=== PATIENT | male | born 1945 | race Caucasian/White ===

== ENCOUNTER 2017-08-17 12:21 | Inpatient (IN) ==
--- NOTE | 2017-08-17 12:52 | Emergency Department Note ---
Disposition Clinical Impression: Dilated bile duct Abdominal pain Qualifiers: Abdominal location: epigastric Qualified Code(s): R10.13 - Epigastric pain Disposition: Admitted As Inpatient Condition: Good General Adult HPI - General Chief complaint: ED Abdominal Pain Stated complaint: Common bile duct stone Time Seen by Provider: 08/17/17 12:49 Source: patient, EMS Limitations: no limitations - History of Present Illness Pain Scale: 0 - Related Data Home Medications Medication Instructions Recorded Confirmed Citalopram Hydrobromide [Celexa] 20 mg PO DAILY 08/17/17 08/17/17 Metformin HCl [Glucophage] 500 mg PO BID 08/17/17 08/17/17 Prazosin HCl [Minipress] 5 mg PO HS 08/17/17 08/17/17 Topiramate [Topamax] 100 mg PO HS 08/17/17 08/17/17 glipiZIDE [Glucotrol] 2.5 mg PO DAILY 08/17/17 08/17/17 Allergies Allergy/AdvReac Type Severity Reaction Status Date / Time gemfibrozil AdvReac Muscle Pain Verified 08/17/17 14:48 niacin AdvReac Dizziness Verified 08/17/17 14:48 Past Medical History - Past Medical History Medical history: Reports: diabetes, hyperlipidemia - Social History Smoking Status: Never smoker Smokeless Tobacco Status: No Alcohol use: Reports: none Drug use: Reports: none Physical Exam - General Limitations: no limitations General appearance: alert, in no apparent distress Course Vital Signs Temperature 97.1 F L 08/17/17 12:24 Pulse Rate 68 08/17/17 12:24 Respiratory Rate 18 08/17/17 12:24 Blood Pressure 164/94 08/17/17 12:24 O2 Sat by Pulse Oximetry 97 08/17/17 12:24 Temperature 97.4 F L 08/17/17 14:34 Pulse Rate 72 08/17/17 14:34 Respiratory Rate 16 08/17/17 14:34 Blood Pressure 168/82 08/17/17 14:34 O2 Sat by Pulse Oximetry 99 08/17/17 14:34 Oxygen Delivery Oxygen Delivery Room Air Medical Decision Making - Lab Data Result diagrams: 08/17/17 13:32 08/17/17 13:32 Lab Results 08/17/17 08/17/17 Range/Units 13:32 13:32 WBC 8.3 (4.3-11.1) K/mcL RBC 4.48 (4.19-5.50) M/mcL Hgb 12.6 L (12.9-16.9) g/dL Hct 39.2 (37.5-50.1) % MCV 87.5 (83.0-100.0) fL MCH 28.1 (28.0-33.3) pg MCHC 32.1 (31.6-35.5) g/dL RDW 14.4 (11.5-14.5) % Plt Count 283 (140-400) K/mcL MPV 9.5 (9.4-12.4) fL Immature Gran % 1.0 (0-4) % Seg Neutrophils % 72.4 % Lymphocytes % 17.8 % Monocytes % 7.2 % Eosinophils % 1.0 % Basophils % 0.6 % Neutrophils # 6.0 (1.6-8.9) K/mcL Lymphocytes # 1.5 (0.6-4.6) K/mcL Monocytes # 0.6 (0.0-1.3) K/mcL Eosinophils # 0.1 (0.0-0.6) K/mcL Basophils # 0.1 (0.0-0.2) K/mcL Sodium 141 (136-145) mEq/L Potassium 3.9 (3.5-5.1) mEq/L Chloride 107 (98-107) mEq/L Carbon Dioxide 30 H (23-29) mEq/L BUN 14 (8-23) mg/dL Creatinine 0.77 (0.70-1.30) mg/dL Est GFR ( Amer) > 60 (> 60) Est GFR (Non-Af Amer) > 60 (> 60) BUN/Creatinine Ratio 18 (6-26) Glucose 169 H (70-105) mg/dL Calculated Osmolality 296 (280-300) Calcium 9.2 (8.6-10.3) mg/dL Total Bilirubin 1.2 H (0.3-1.0) mg/dL AST 42 H (13-39) Units/L ALT 139 H (7-52) Units/L Alkaline Phosphatase 232 H (34-104) Units/L Serum Total Protein 6.6 (6.4-8.9) g/dL Albumin 4.1 (3.5-5.7) g/dL Globulin 2.5 (2.4-3.5) g/dL Albumin/Globulin Ratio 1.6 (1.1-2.2) Attestation Statement - Attestation Attestation: I examined this patient and my medical decision-making was reviewed with the BEAM BUILDER HELPER/PA/Advanced Practice Nurse/Resident Physician. I agree with the documented findings, disposition and treatment plan as described except to the extent set forth below. I did speak with the patient and examined him. I did review the records from the [facility] as well as speaking with the physician assistant branch operations manager who sent the patient over here. Currently the patient is pain-free and on exam there is no pain with palpation. Patient does have biliary duct dilation and this will discuss further with GI for ongoing management and care. [address] Mccain and we reviewed the records from the [facility] the [facility] report and labs. Rec admission and he will do MRCP 1257
--- NOTE | 2017-08-17 13:10 | Emergency Department Note ---
Disposition Clinical Impression: Dilated bile duct Abdominal pain Qualifiers: Abdominal location: epigastric Qualified Code(s): R10.13 - Epigastric pain Disposition: Admitted As Inpatient Condition: Good Time of Disposition: 13:22 General Adult HPI - General Chief complaint: ED Abdominal Pain Stated complaint: Common bile duct stone Time Seen by Provider: 08/17/17 12:49 Source: patient, EMS Limitations: no limitations Nursing Notes Reviewed: Yes Vital Signs Reviewed: Yes - History of Present Illness HPI Narrative: Three-month history of intermittent abdominal pain. Associated nausea. Not present at this time. Well-appearing. Sent here for possible MRCP. Pain Scale: 0 - Related Data Home Medications Medication Instructions Recorded Confirmed Citalopram Hydrobromide [Celexa] 20 mg PO DAILY 08/17/17 08/17/17 Metformin HCl [Glucophage] 500 mg PO BID 08/17/17 08/17/17 Prazosin HCl [Minipress] 5 mg PO HS 08/17/17 08/17/17 Topiramate [Topamax] 100 mg PO HS 08/17/17 08/17/17 glipiZIDE [Glucotrol] 2.5 mg PO DAILY 08/17/17 08/17/17 Allergies Allergy/AdvReac Type Severity Reaction Status Date / Time gemfibrozil AdvReac Muscle Pain Verified 08/17/17 14:48 niacin AdvReac Dizziness Verified 08/17/17 14:48 All systems ED: reviewed and negative except as stated. Constitutional: Denies: fever, chills Cardiovascular: Denies: chest pain, syncope Respiratory: Denies: cough, dyspnea Gastrointestinal: Reports: abdominal pain (Intermittent not this time.), nausea (occasionally. ). Denies: vomiting, diarrhea Past Medical History - Past Medical History Attestation: Yes The following information was validated with the patient. Medical history: Reports: diabetes, hyperlipidemia - Social History Smoking Status: Never smoker Smokeless Tobacco Status: No Alcohol use: Reports: none Drug use: Reports: none Physical Exam - General Limitations: no limitations General appearance: alert, in no apparent distress - Head Head exam: atraumatic, normocephalic, normal inspection - Eye Eye exam: Present: normal appearance, PERRL, EOMI - ENT ENT exam: normal exam, normal oropharynx, mucous membranes moist - Neck Neck exam: Present: normal inspection, full ROM, trachea midline - Chest Chest inspection: Present: normal inspection, symmetric chest wall rise - Respiratory Respiratory exam: Present: normal lung sounds bilaterally - Cardiovascular Cardiovascular exam: Present: regular rate, normal rhythm, normal heart sounds - Abdominal Exam Abdominal exam: Present: soft, Non-Tender. Absent: tenderness, distention, guarding, rebound, rigidity, organomegaly - Extremities Exam Extremities exam: Present: normal inspection, full ROM, normal capillary refill. Absent: tenderness, pedal edema - Back Exam Back exam: Present: normal inspection, full ROM. Absent: tenderness - Neurological Exam Neurological exam: Present: alert, oriented X3 - Psychiatric Psychiatric exam: Present: normal affect, normal mood - Skin Skin exam: Present: warm, dry, intact, normal color. Absent: rash Course Course Narrative: Male patient being sent from the [facility] for abdominal pain. Was being worked up for this. Has had this happen 3 times since June. He was having a right upper quadrant ultrasound and repeat labs done today when he was sent over for a dilated biliary duct and elevated liver enzymes. He denies any pain at this time. He is mentating appropriately vitals are stable. Lung sounds are clear heart tones are normal belly soft nontender. We will admit patient to the hospital for GI services and a possible MRCP. Lab work and CT is on patient's chart from the [facility]. - Consultations Consultation #1: Dr Mccain was made aware of the Pt y my attending. He advised to admit to the hospital. I spoke with Dr Roman. He accepted the Pt in stable condition. Time: 13:09 Vital Signs Temperature 97.1 F L 08/17/17 12:24 Pulse Rate 68 08/17/17 12:24 Respiratory Rate 18 08/17/17 12:24 Blood Pressure 164/94 08/17/17 12:24 O2 Sat by Pulse Oximetry 97 08/17/17 12:24 Temperature 97.9 F 08/17/17 19:08 Pulse Rate 56 08/17/17 19:08 Respiratory Rate 15 08/17/17 19:08 Blood Pressure 160/81 08/17/17 19:08 O2 Sat by Pulse Oximetry 98 08/17/17 19:08 Oxygen Delivery Oxygen Delivery Room Air Medical Decision Making - Medical Records Medical records reviewed: Yes I reviewed the patient's medical records. - Lab Data Lab results reviewed: Yes I reviewed the patient's lab results. Result diagrams: 08/17/17 13:32 08/17/17 13:32 Lab Results 08/17/17 08/17/17 Range/Units 13:32 13:32 WBC 8.3 (4.3-11.1) K/mcL RBC 4.48 (4.19-5.50) M/mcL Hgb 12.6 L (12.9-16.9) g/dL Hct 39.2 (37.5-50.1) % MCV 87.5 (83.0-100.0) fL MCH 28.1 (28.0-33.3) pg MCHC 32.1 (31.6-35.5) g/dL RDW 14.4 (11.5-14.5) % Plt Count 283 (140-400) K/mcL MPV 9.5 (9.4-12.4) fL Immature Gran % 1.0 (0-4) % Seg Neutrophils % 72.4 % Lymphocytes % 17.8 % Monocytes % 7.2 % Eosinophils % 1.0 % Basophils % 0.6 % Neutrophils # 6.0 (1.6-8.9) K/mcL Lymphocytes # 1.5 (0.6-4.6) K/mcL Monocytes # 0.6 (0.0-1.3) K/mcL Eosinophils # 0.1 (0.0-0.6) K/mcL Basophils # 0.1 (0.0-0.2) K/mcL Sodium 141 (136-145) mEq/L Potassium 3.9 (3.5-5.1) mEq/L Chloride 107 (98-107) mEq/L Carbon Dioxide 30 H (23-29) mEq/L BUN 14 (8-23) mg/dL Creatinine 0.77 (0.70-1.30) mg/dL Est GFR ( Amer) > 60 (> 60) Est GFR (Non-Af Amer) > 60 (> 60) BUN/Creatinine Ratio 18 (6-26) Glucose 169 H (70-105) mg/dL Calculated Osmolality 296 (280-300) Calcium 9.2 (8.6-10.3) mg/dL Total Bilirubin 1.2 H (0.3-1.0) mg/dL AST 42 H (13-39) Units/L ALT 139 H (7-52) Units/L Alkaline Phosphatase 232 H (34-104) Units/L Serum Total Protein 6.6 (6.4-8.9) g/dL Albumin 4.1 (3.5-5.7) g/dL Globulin 2.5 (2.4-3.5) g/dL Albumin/Globulin Ratio 1.6 (1.1-2.2)
[2017-08-17 13:43] LABS: Basophils # 0.1 K/mcL (0.0-0.2); Basophils % 0.6 %; Eosinophils # 0.1 K/mcL (0.0-0.6); Hematocrit 39.2 % (37.5-50.1); Hemoglobin 12.6 g/dL (12.9-16.9); Lymphocytes # 1.5 K/mcL (0.6-4.6); Lymphocytes % 17.8 %; Mean Corpuscular HGB Conc 32.1 g/dL (31.6-35.5); Mean Corpuscular Hemoglobin 28.1 pg (28.0-33.3); Mean Corpuscular Volume 87.5 fL (83.0-100.0); Mean Platelet Volume 9.5 fL (9.4-12.4); Monocytes # 0.6 K/mcL (0.0-1.3); Monocytes % 7.2 %; Platelet Count 283 K/mcL (140-400); Red Blood Count 4.48 M/mcL (4.19-5.50); Red Cell Distribution Width 14.4 % (11.5-14.5); Segmented Neutrophils % 72.4 %
[2017-08-17 14:00] LABS: Alanine Aminotransferase 139 Units/L (7-52); Albumin 4.1 g/dL (3.5-5.7); Albumin/Globulin Ratio 1.6 (1.1-2.2); Alkaline Phosphatase 232 Units/L (34-104); Aspartate Amino Transferase 42 Units/L (13-39); BUN/Creatinine Ratio 18 (6-26); Bilirubin,Total 1.2 mg/dL (0.3-1.0); Blood Urea Nitrogen 14 mg/dL (8-23); Calcium 9.2 mg/dL (8.6-10.3); Carbon Dioxide 30 mEq/L (23-29); Chloride 107 mEq/L (98-107); Globulin 2.5 g/dL (2.4-3.5); Glucose 169 mg/dL (70-105); Osmolality,Calculated 296 (280-300); Potassium 3.9 mEq/L (3.5-5.1); Sodium 141 mEq/L (136-145); Total Protein 6.6 g/dL (6.4-8.9); eGFR For African Americans > 60 (> 60); eGFR For Non-African Americans > 60 (> 60)
[2017-08-17] MEDS ORDERED: Acetaminophen 325 MG TABLET PO PRN (14:07)
[2017-08-17] MEDS ORDERED: Naloxone 0.4 MG/ML INJ IVP PRN (14:07)
[2017-08-17] MEDS ORDERED: *HR* HYDROcodone/Acet 5/325 mg TABLET PO PRN (14:07)
[2017-08-17] MEDS ORDERED: Ondansetron 4 MG/2 ML VIAL IVP PRN (14:14)
[2017-08-17] MEDS ORDERED: D5% in Water 1,000 ML IVC PRN (14:17)
[2017-08-17] MEDS ORDERED: Dextrose Gel 15 GM/37.5 ML TUBE PO PRN ×2 (14:17)
[2017-08-17] MEDS ORDERED: *HR* Dextrose 50 % in Water (Syg) 50 ML SYRINGE IVP PRN (14:17)
[2017-08-17] MEDS: Pantoprazole 40 MG VIAL IVP SCH (14:38)
--- NOTE | 2017-08-17 15:15 | Internal Med History&Physical ---
<Oliver Renteria - Last Filed: 08/17/17 15:38> Date of Encounter: 08/17/17 Time of Encounter: 13:00 Internal Medicine - H&P: HPI Chief complaint: Abdominal pain/N/V Admitted From: Hospital to Hospital Transfer Plans for Post Hospital Care: Home History of present illness: Mr. Espinoza is a 71 year old male w/PMH of diabetes, HTN, and HLD presents from the ED w/CC of abdominal pain, nausea, and vomiting since July 24. Patient reports episode of nausea with vomiting on July 24, August 01, and August 11. Was at [facility] today for appointment and sent to [facility] ED for further workup based on consistent epigastric pain and abdominal edema. Imaging at [facility] shows biliary duct dilation with suspicion for possible common bile duct stone. Pt. states no alleviating or aggravating factors. Reports occasional alcohol use. Patient denies recent illness, fever, chills, changes in vision, headache, cough, congestion, chest pain, shortness of breath, unusual bleeding, diarrhea, constipation, dizziness, lightheadedness, numbness, tingling, pre-syncope, or syncope. Past Med Surg Social Fam HX - Past Medical History Source: patient, old records reviewed Medical history: diabetes, hyperlipidemia - Social History Smoking Status: Never smoker Smokeless Tobacco Status: No Alcohol use: occasionally Drug use: none Current living situation: Home Activity Level: Independent ambulation, Very active Recent Out of Country Travel Within the Last 8 Weeks: No Exposure or Possible Exposure to Illness During Travel: No - Family History Father Race: Family Member Ethnicity: Non- Living Status: Age at : 61 Cause of : [place] Hx Family Cardiac Disorders: Yes (CAD, [place]) Mother Race: Family Member Ethnicity: Non- Living Status: Age at : 95 Cause of : Old age Sister Race: Family Member Ethnicity: Non- Living Status: Still Living Hx Family Medical Disorders: No Internal Medicine - H&P: Meds Citalopram Hydrobromide [Celexa] 20 mg PO DAILY 08/17/17 [History] Metformin HCl [Glucophage] 500 mg PO BID 08/17/17 [History] Prazosin HCl [Minipress] 5 mg PO HS 08/17/17 [History] Topiramate [Topamax] 100 mg PO HS 08/17/17 [History] glipiZIDE [Glucotrol] 2.5 mg PO DAILY 08/17/17 [History] 3 Allergy/AdvReac Type Severity Reaction Status Date / Time gemfibrozil AdvReac Muscle Pain Verified 08/17/17 14:48 niacin AdvReac Dizziness Verified 08/17/17 14:48 All Systems PM: A 10-system review of systems was performed and is negative for pertinent findings except as documented above in the HPI. - Constitutional Constitutional: no chills, no fever(s), no night sweats - EENT Eyes: no change in vision, no discharge, no pain, no photophobia Ears: no ear discharge, no ear pain, no tinnitus Nose, mouth and throat: no dysphagia, no nasal discharge, no neck pain, no sore throat - Breasts Breasts: as per HPI - Cardiovascular Cardiovascular ROS IM: no chest pain, no diaphoresis, no dyspnea, no lightheadedness, no palpitations, no syncope - Respiratory Respiratory: no cough, no dyspnea, no wheezing, no excessive phlegm production - Gastrointestinal Gastrointestinal: as per HPI, abdominal pain, nausea, vomiting, no diarrhea, no hematemesis, no hematochezia, no melena - Genitourinary Genitourinary ROS male: as per HPI - Musculoskeletal Musculoskeletal ROS IM: no numbness, no tingling - Integumentary Integumentary IM: no rash, no unusual bruising - Neurological Neurological ROS: no confusion, no convulsions, no focal weakness, no numbness, no tingling, no tremor(s) - Psychiatric Psychiatric: as per HPI - Endocrine Endocrine IM: as per HPI - Hematologic/Lymphatic Hematologic/Lymphatic: no easy bruising - Allergic/Immunologic Allergic/Immunologic: as per HPI - Constitutional Vitals: Temp Pulse Resp BP Pulse Ox 97.4 F L 72 16 168/82 99 08/17/17 14:34 08/17/17 14:34 08/17/17 14:34 08/17/17 14:34 08/17/17 14:34 General appearance: Present: cooperative, A&O X 3, pleasant, no acute distress, answers questions appropriately - Head Head exam: Present: atraumatic, normocephalic - Eye Eye exam: Present: PERRL, conjuntiva pink, sclera anicteric Pupils: Present: PERRL - ENT ENT exam: Present: normal exam - Neck Neck exam general surgery: Present: supple, trachea midline. Absent: lymphadenopathy - Respiratory Respiratory exam: Present: CTAB. Absent: accessory muscle use, rales, rhonchi, wheezes - Cardiovascular Cardiovascular exam: Present: RRR, +S1, +S2. Absent: diastolic murmur, gallop, rubs, systolic murmur - GI/Abdominal GI/Abdominal exam: Present: normal bowel sounds, soft, no peritoneal signs. Absent: distended, tenderness - Rectal Rectal exam: Present: deferred - Additional comments: exam deferred. - Extremities Exam Extremities exam: Present: warm, radial pulses palpable and symmetrical. Absent : calf tenderness, cyanotic, pedal edema - Back Exam Back exam: Present: normal inspection - Neurological Exam Neurological exam: Present: CN II-XII intact, oriented X3, no focal deficits. Absent: pronater drift, facial droop, speech deficit - Psychiatric Psychiatric exam: Present: normal affect, normal mood - Skin Skin exam: Present: dry, intact Internal Med - H&P Results - Labs CBC & Chem 7: 08/17/17 13:32 08/17/17 13:32 Labs: Short CBC 08/17/17 Range/Units 13:32 WBC 8.3 (4.3-11.1) K/mcL Hgb 12.6 L (12.9-16.9) g/dL Hct 39.2 (37.5-50.1) % Plt Count 283 (140-400) K/mcL Neutrophils # 6.0 (1.6-8.9) K/mcL BMP 08/17/17 13:32 Sodium 141 Potassium 3.9 Chloride 107 Carbon Dioxide 30 H BUN 14 Creatinine 0.77 Glucose 169 H Calcium 9.2 Liver Function 08/17/17 Range/Units 13:32 Total Bilirubin 1.2 H (0.3-1.0) mg/dL AST 42 H (13-39) Units/L ALT 139 H (7-52) Units/L Alkaline Phosphatase 232 H (34-104) Units/L Albumin 4.1 (3.5-5.7) g/dL - Assessment and plan (1) Dilated bile duct Current Visit: Yes Status: Acute Assessment and plan: Evidence of acutely dilated common bile duct on imaging at [facility] accompanied by intermittent N/V and abdominal pain since July 24. Total bilirubin 1.2, AST 42, and ALT 139. Pt. denies current N/V on exam w/no abdominal pain on palpation. GI consult ordered in ED. Discussed pt. w/Dr. Mccain w/recommendation for stat MRCP to assess for stone. Dr. Mccain will assess imaging and plan for procedure in a.m. if appropriate. I appreciate the consult and recommendations as always. NPO at midnight. Clear diet with advance as tolerated currently. IVP Zofran 4 mg every 6 hours when necessary for nausea and vomiting. IVP Protonix 40 mg daily. Bilateral SCDs for DVT prophylaxis. Discussed pt. w/Dr. Roman who agrees w/plan of care. Pt. is low risk for further morbidity based on intermittent sx, hx, and risk factors. [facility]. (2) Abdominal pain Current Visit: Yes Status: Acute Assessment and plan: Acute intermittent abdominal pain since July 24 d/t accompanied by N/V. Pt. currently denies N/V on exam. IVP Zofran 4 mg Q6HR PRN for N/V. IVP Protonix 40 mg daily. Clear liquid diet w/advance as tolerated. Monitor I&O and daily weight. Stair-step pain medications for pain control. Qualifiers: Abdominal location: epigastric Qualified Code(s): R10.13 - Epigastric pain (3) HTN (hypertension) Current Visit: Yes Status: Chronic Assessment and plan: Hx of chronic HTN. Monitor pt. and VS. Continue pts. Prazosin. Hydralazine 10 mg IVP Q6HR PRN added w/parameters if needed. Qualifiers: Hypertension type: essential hypertension Qualified Code(s): I10 - Essential (primary) hypertension (4) HLD (hyperlipidemia) Current Visit: Yes Status: Chronic Assessment and plan: Hx of chronic HLD. Pt. states was on statin but was taken off by PCP. Reports hx of hypertriglyceridemia. Lipid panel in a.m. labs. Consider adding statin based in lipid panel results. Qualifiers: Hyperlipidemia type: pure hypercholesterolemia Qualified Code(s): E78.00 - Pure hypercholesterolemia, unspecified; E78.0 - Pure hypercholesterolemia (5) Diabetes Current Visit: Yes Status: Chronic Assessment and plan: Hx of chronic diabetes controlled with oral antihyperglycemic medications. Will hold patient's oral medications and administer low-dose correction insulin sliding scale and hypoglycemic protocol. BG checks before meals at bedtime. A1c in a.m. labs. Qualifiers: Diabetes mellitus type: type 2 Diabetes mellitus crm specialist insulin use: without [facility] use Diabetes mellitus complication status: with unspecified complications Qualified Code(s): E11.8 - Type 2 diabetes mellitus with unspecified complications (6) DVT prophylaxis Current Visit: Yes Status: Acute Assessment and plan: Bilateral SCDs on LEs for DVT prophylaxis. (7) Nausea and vomiting Current Visit: Yes Status: Acute Assessment and plan: Acute N/V intermittently since July 24 d/t abdominal pain and discomfort. Pt. currently denies N/V on exam. IVP Zofran 4 mg Q6HR PRN for N/V. IVP Protonix 40 mg daily. Qualifiers: Vomiting type: cyclical vomiting Vomiting Intractability: non-intractable Qualified Code(s): G43.A0 - Cyclical vomiting, not intractable - Time Spent With Patient Total time spent is greater than 50% in coordination of care (as documented) at patient's floor/unit and/or counseling patient: Greater than 35 minutes <Ganesh Roman - Last Filed: 08/17/17 18:40> Date of Encounter: 08/17/17 Internal Medicine - H&P: HPI History of present illness: Mr. Espinoza is a 71 year old male All Systems PM: A 10-system review of systems was performed and is negative for pertinent findings except as documented above in the HPI. - Constitutional Vitals: Temp Pulse Resp BP Pulse Ox 97.4 F L 72 16 168/82 99 08/17/17 14:34 08/17/17 14:34 08/17/17 14:34 08/17/17 14:34 08/17/17 14:34 Internal Med - H&P Results - Labs CBC & Chem 7: 08/17/17 13:32 08/17/17 13:32 - Attending Attestation Discussed with ESAU and agree with assessment and plan as above Patient is a 71-year-old male who presents with nausea/vomiting/abdominal pain found to have evidence of dilated common bile duct on imaging at the [facility]. On examination patient with minimal abdominal discomfort without distention. GI has been consulted with recommendations for MRCP/ERCP - Assessment and plan (1) Abdominal pain Current Visit: Yes Status: Acute Qualifiers: Abdominal location: epigastric Qualified Code(s): R10.13 - Epigastric pain (2) Dilated bile duct Current Visit: Yes Status: Acute (3) HTN (hypertension) Current Visit: Yes Status: Chronic Qualifiers: Hypertension type: essential hypertension Qualified Code(s): I10 - Essential (primary) hypertension (4) HLD (hyperlipidemia) Current Visit: Yes Status: Chronic Qualifiers: Hyperlipidemia type: pure hypercholesterolemia Qualified Code(s): E78.00 - Pure hypercholesterolemia, unspecified; E78.0 - Pure hypercholesterolemia (5) Diabetes Current Visit: Yes Status: Chronic Qualifiers: Diabetes mellitus type: type 2 Diabetes mellitus [facility] insulin use: without [facility] use Diabetes mellitus complication status: with unspecified complications Qualified Code(s): E11.8 - Type 2 diabetes mellitus with unspecified complications (6) DVT prophylaxis Current Visit: Yes Status: Acute (7) Nausea and vomiting Current Visit: Yes Status: Acute Qualifiers: Vomiting type: cyclical vomiting Vomiting Intractability: non-intractable Qualified Code(s): G43.A0 - Cyclical vomiting, not intractable - Time Spent With Patient Total time spent is greater than 50% in coordination of care (as documented) at patient's floor/unit and/or counseling patient:
[2017-08-17] MEDS ORDERED: *HR* Heparin 5,000 UNIT/ML VIAL SQ SCH (16:00)
[2017-08-17] MEDS: Insulin LISPRO 300 UNITS/3 ML VIAL SQ SCH ×2 (16:45→20:24)
[2017-08-17 19:13] LABS: INR 1.1; Prothrombin Time 11.7 Seconds (9.4-12.1)
[2017-08-17] MEDS: Topiramate 100 MG TABLET PO SCH (20:15)
[2017-08-18 05:15] LABS: Basophils % 0.6 %; Eosinophils # 0.1 K/mcL (0.0-0.6); Eosinophils % 1.7 %; Hematocrit 37.8 % (37.5-50.1); Hemoglobin 12.6 g/dL (12.9-16.9); Immature Granulocytes % 0.6 % (0-4); Lymphocytes # 1.6 K/mcL (0.6-4.6); Lymphocytes % 23.4 %; Mean Corpuscular HGB Conc 33.3 g/dL (31.6-35.5); Mean Corpuscular Volume 87.1 fL (83.0-100.0); Mean Platelet Volume 9.8 fL (9.4-12.4); Monocytes # 0.5 K/mcL (0.0-1.3); Monocytes % 7.5 %; Neutrophils # 4.4 K/mcL (1.6-8.9); Platelet Count 261 K/mcL (140-400); Red Blood Count 4.34 M/mcL (4.19-5.50); Red Cell Distribution Width 14.3 % (11.5-14.5); Segmented Neutrophils % 66.2 %
[2017-08-18 05:26] LABS: Alanine Aminotransferase 115 Units/L (7-52); Albumin 3.8 g/dL (3.5-5.7); Albumin/Globulin Ratio 1.5 (1.1-2.2); Alkaline Phosphatase 215 Units/L (34-104); Aspartate Amino Transferase 28 Units/L (13-39); BUN/Creatinine Ratio 16 (6-26); Bilirubin,Total 1.6 mg/dL (0.3-1.0); Blood Urea Nitrogen 12 mg/dL (8-23); Calcium 9.5 mg/dL (8.6-10.3); Carbon Dioxide 22 mEq/L (23-29); Chloride 110 mEq/L (98-107); Cholesterol 150 mg/dL (< 200); Globulin 2.6 g/dL (2.4-3.5); Glucose 139 mg/dL (70-105); HDL Cholesterol 30 mg/dL (40-59); LDL Cholesterol,Calculated 80 mg/dL (0-99); Osmolality,Calculated 292 (280-300); Sodium 140 mEq/L (136-145); Total Protein 6.4 g/dL (6.4-8.9); Triglycerides 199 mg/dL (< 150); eGFR For African Americans > 60 (> 60); eGFR For Non-African Americans > 60 (> 60)
[2017-08-18] MEDS: Insulin LISPRO 300 UNITS/3 ML VIAL SQ SCH ×4 (07:30→21:20)
--- NOTE | 2017-08-18 08:49 | Anesthesia Evaluation PreOp ---
Date of Encounter: 08/18/17 Time of Encounter: 08:45 - Past History Planned Operation: ERCP Cardiac History: HTN Pulmonary History: Denies Any Significant HX BANKING MANAGER History: Denies Any Significant HX Other Medical History: Diabetes Type II (Accu check 124) Anesthesia History: No Prior Anesthetic Complications Alcohol Use: none Drug use: none Medications and Allergies Citalopram Hydrobromide [Celexa] 20 mg PO DAILY 08/17/17 [History] Metformin HCl [Glucophage] 500 mg PO BID 08/17/17 [History] Prazosin HCl [Minipress] 5 mg PO HS 08/17/17 [History] Topiramate [Topamax] 100 mg PO HS 08/17/17 [History] glipiZIDE [Glucotrol] 2.5 mg PO DAILY 08/17/17 [History] 3 Allergy/AdvReac Type Severity Reaction Status Date / Time gemfibrozil AdvReac Muscle Pain Verified 08/17/17 14:48 niacin AdvReac Dizziness Verified 08/17/17 14:48 - Meds/Allergy Pre-op Review Medications Reviewed: Yes Allergies Reviewed: Yes Beta Blockers on Current Med List: No Anesthesia Results - Labs 08/18/17 04:48 08/18/17 04:48 Laboratory Tests 08/18/17 08/18/17 04:48 04:48 Hgb 12.6 L Hct 37.8 Plt Count 261 Sodium 140 Potassium 4.0 BUN 12 Creatinine 0.76 Glucose 139 H Anesthesia Exam Vital Signs/O2 Sat/Glucose, Most Current Temp Pulse Resp BP Pulse Ox 08/18/17 06:54 98.0 F 68 15 127/73 96 Height: 6'1 Weight: 205 lbs NPO (# of Hours): [place] Pain Scale: 0 - HEENT Pupil (Motor): Pupils equal, EOMI Mallampati: II Teeth: Normal Oral Opening: Greater than 3 - BANKING MANAGER LOC: Oriented BANKING MANAGER Motor: Normal RUE, Normal LUE, Normal RLE, Normal LLE, Normal Face BANKING MANAGER Sensory: Normal: RUE, LUE, RLE, LLE, Face - Cardiac Rhythm: Regular Murmur: None JVD: No Carotid Bruit: No - Pulmonary Breath Sounds: bilateral Clear Respiratory Effort: Symmetrical Anesthesia Assess/Plan ASA Score: 2 Modified Tyrell Scale for Level of Consciousness: Cooperative, oriented, and tranquil Anesthetic Plan: General Monitoring Plan: Standard Monitors Recovery Plan: PACU (Discussed GA, agrees to proceed)
[2017-08-18] MEDS: Ringers Solution, Lactated 1,000 ML IVC SCH ×2 (09:00→22:10)
[2017-08-18] MEDS ORDERED: Indomethacin 50 MG SUPP.RECT RC ONE (09:24)
[2017-08-18] MEDS ORDERED: *HR* Propofol 200 MG/20 ML VIAL IVP ONE ×2 (09:49)
[2017-08-18] MEDS ORDERED: *HR* Succinylcholine 200 MG/10 ML VIAL IVP ONE (09:49)
[2017-08-18] MEDS ORDERED: *HR* FentaNYL (PF) 100 MCG/2 ML VIAL ONE (09:49)
[2017-08-18] MEDS ORDERED: Lidocaine -MPF 2% 2 ML VIAL ONE (09:49)
[2017-08-18] MEDS ORDERED: Ondansetron 4 MG/2 ML VIAL ONE (09:49)
[2017-08-18] MEDS ORDERED: *HR* Midazolam HCl 2 MG/2 ML VIAL ONE (09:49)
[2017-08-18] MEDS ORDERED: Dexamethasone 4 MG/ML VIAL ONE (09:49)
[2017-08-18] MEDS ORDERED: *HR* PHENYLEPHRINE 1,000 MCG/10 ML SYRINGE IVP ONE (09:50)
[2017-08-18] MEDS ORDERED: Dexamethasone 4 MG/ML VIAL IVP ONE (09:51)
[2017-08-18] MEDS ORDERED: *HR* Labetalol 20 MG/4 ML SYRINGE IVP PRN (09:51)
[2017-08-18] MEDS ORDERED: *HR* Promethazine 25 MG/ML VIAL IVP PRN (09:51)
[2017-08-18] MEDS ORDERED: EPHEDrine 50 MG/ML VIAL ONE (10:02)
--- NOTE | 2017-08-18 11:10 | Gastroenterology Consult Note ---
Date of Encounter: 08/18/17 Time of Encounter: 13:00 - Assessment and plan (1) Dilated bile duct Current Visit: Yes Status: Acute (2) Biliary stone Current Visit: Yes Status: Acute Assessment and plan: MRCP showing a 1.4 cm large stone kael with dilated CBD and also patient has mildly elevated LFTs. Currently is pain-free. Plan: Patient need ERCP with removal of the stone procedure including risks such as infection bleeding perforation pancreatitis were discussed with the patient and he voice understanding and in agreement for the procedure. after removal of the CBD stone he will also need his gallbladder removed. Qualifiers: Cholelithiasis location: bile duct Cholecystitis presence: without cholecystitis Qualified Code(s): K80.50 - Calculus of bile duct without cholangitis or cholecystitis without obstruction - Time Spent With Patient Total time spent is greater than 50% in coordination of care (as documented) at patient's floor/unit and/or counseling patient: GI History of Present Illness - Data of Consult Requesting Physician: Nikita Edmondson MD - Consult Narrative Reason for consult: Large CBD stone History of present illness: Mr. Espinoza is a 71 year old male who is having recurrent epigastric abdominal pain since end of June per patient the pain can last for couple of hours. Denies any fever or chills. Denies any her discretion of the eyes or urine. Went to the ER at the [place] and had imaging done that showed dilated CBD with a possible stone so was transferred here. Had an MRCP done that showed a 1.4 cm stone in the distal common bile duct patient has mildly elevated LFTs.. Past Med Surg Social Fam HX - Past Medical History Medical history: diabetes, hyperlipidemia - Social History Smoking Status: Never smoker Smokeless Tobacco Status: No Alcohol use: none Drug use: none - Family History Father Race: Family Member Ethnicity: Non- Living Status: Age at : 63 Cause of : [place] Hx Family Cardiac Disorders: Yes (CAD, [place]) Mother Race: Family Member Ethnicity: Non- Living Status: Age at : 95 Cause of : Old age Sister Race: Family Member Ethnicity: Non- Living Status: Still Living Hx Family Medical Disorders: No Review of Systems: GI: as per [place] GENERAL: denies fever, has some chills EYES: denies yellow discoloration ENT: denies pain with swallowing or difficulty swallowing CARDIO: denies chest pain, palpitations RESP: No Shortness of breath with exertion : denies change in color of urine NEURO: denies any weakness HEME: Denies any bruising MS: denies joint pain, joint swelling or back pain. DERM: denies rash or itching PSYCH: Denies history of anxiety or depression - Constitutional Vitals: Temp Pulse Resp BP Pulse Ox 97.3 F L 66 18 120/89 97 08/18/17 11:00 08/18/17 11:00 08/18/17 11:00 08/18/17 11:00 08/18/17 11:00 Exam: CONSTITUTIONAL:~alert, no acute distress.~HEAD:~normocephalic.~EYES:~no jaundice.~NECK:~no obvious swelling.~HEART:~regular rate.~LUNGS:~No audible wheezing.~ABDOMEN:~non distended, soft, non tander, no masses pulpable, no organomegaly.~RECTAL EXAM:~Deferred.~EXTREMITIES:~no clubbing, cyanosis or edema.~SKIN:~no stigmata of chronic liver disease.~NEUROLOGIC:~no obvious focal defect.~~~~ Results - Labs CBC & Chem 7: 08/18/17 04:48 08/18/17 04:48 Labs: Last Result Calcium 9.5 mg/dL (8.6-10.3) 08/18/17 04:48 Triglycerides 199 mg/dL (< 150) H 08/18/17 04:48 Entire Visit Hgb 12.6 g/dL (12.9-16.9) L 08/18/17 04:48 Hct 37.8 % (37.5-50.1) 08/18/17 04:48 PT 11.7 Seconds (9.4-12.1) 08/17/17 18:28 Total Bilirubin 1.6 mg/dL (0.3-1.0) H 08/18/17 04:48 AST 28 Units/L (13-39) 08/18/17 04:48 ALT 115 Units/L (7-52) H 08/18/17 04:48 - ABG ABG results: PT/INR, D-dimer PT 11.7 Seconds (9.4-12.1) 08/17/17 18:28 - Impressions Impressions Cath/Invasive Procedure 08/18/17 10:18 IMPRESSION: No evidence of a focal stenosis or filling defect within the opacified biliary tree. Please refer to the procedure report for further details. D/ / Jermaine Colon MD / Jermaine Colon MD Interpreting Provider: Jermaine Colon MD Consult Discharge Plan - Plan Referrals: [facility] [Outside]
--- NOTE | 2017-08-18 11:47 | Anesthesia Evaluation Post Op ---
Date of Encounter: 08/18/17 Time of Encounter: 11:00 - Vital Signs Vital Signs: Vital Signs/O2 Sat/Glucose, Most Current Temp Pulse Resp BP Pulse Ox 08/18/17 11:10 56 16 122/77 98 08/18/17 11:00 97.3 F L 66 18 120/89 97 08/18/17 10:50 70 18 116/67 98 08/18/17 10:40 75 20 120/66 96 08/18/17 10:30 97.1 F L 89 22 123/69 96 08/18/17 09:13 68 18 131/74 99 08/18/17 09:01 96 - Lungs Lungs: Clear Ascult./Percussion - Airway Airway: Non-obstructed - Cardiovascular Regular Rate - Mental Status Mental Status: Alert & Oriented, Answers Appropriately - Pain Pain Scale: 0 - Nausea Vomiting Nausea Vomiting: Not Present - Hydration Hydration: Ice chips - Discharge PostOp Status: Transfer Patient to floor
--- NOTE | 2017-08-18 11:58 | General Surgery Consult Note ---
Date of Encounter: 08/18/17 Time of Encounter: 11:45 Assessment and Plan (1) Cholelithiasis with choledocholithiasis Current Visit: Yes Status: Acute The patient has undergone successful ERCP with clearance of a 1.4 cm common bile duct stone. Now presents for convalescent laparoscopic cholecystectomy. I discussed risks and benefits with him and wishes to proceed tomorrow morning. History of Present Illness Consult date: 08/18/17 Reason for consult: abdominal pain History of present illness: The patient is a 71-year-old male who presented to the [place] urgent care with abdominal pain. Subsequent radiologic evaluation demonstrated an acutely dilated common bile duct and elevated liver function test. He was transferred to [place] for further care. Dr. Mccain performed ERCP. A 1.4 cm stone was recovered. Dr. Mccain has asked me to see the patient in consultation for convalescent laparoscopic cholecystectomy to prevent future episodes of choledocholithiasis. The patient states that he has intermittent epigastric abdominal discomfort that he thought was gastritis or an ulcer. He has not previously been diagnosed with cholelithiasis. He denies episodes of jaundice. He denies shakes chills or fever. He now presents for convalescent laparoscopic cholecystectomy after ERCP treatment of choledocholithiasis I discussed risks and benefits of surgery with the patient he wishes to proceed before he is discharged home. We will proceed tomorrow morning. Past Med Surg Social Fam HX - Past Medical History Medical history: diabetes, hyperlipidemia - Social History Smoking Status: Never smoker Smokeless Tobacco Status: No Alcohol use: none Drug use: none - Family History Father Race: Family Member Ethnicity: Non- Living Status: Age at : 61 Cause of : [place] Hx Family Cardiac Disorders: Yes (CAD, [place]) Mother Race: Family Member Ethnicity: Non- Living Status: Age at : 95 Cause of : Old age Sister Race: Family Member Ethnicity: Non- Living Status: Still Living Hx Family Medical Disorders: No Medications and Allergies Citalopram Hydrobromide [Celexa] 20 mg PO DAILY 08/17/17 [History] Metformin HCl [Glucophage] 500 mg PO BID 08/17/17 [History] Prazosin HCl [Minipress] 5 mg PO HS 08/17/17 [History] Topiramate [Topamax] 100 mg PO HS 08/17/17 [History] glipiZIDE [Glucotrol] 2.5 mg PO DAILY 08/17/17 [History] 3 Allergy/AdvReac Type Severity Reaction Status Date / Time gemfibrozil AdvReac Muscle Pain Verified 08/17/17 14:48 niacin AdvReac Dizziness Verified 08/17/17 14:48 Review of Systems All systems PM: The remainder of the systems were reviewed and are negative General Surgery Exam Initial Vital Signs Temp Pulse Resp BP Pulse Ox 97.1 F L 68 18 164/94 97 08/17/17 12:24 08/17/17 12:24 08/17/17 12:24 08/17/17 12:24 08/17/17 12:24 - General physical appearance well developed, well nourished, no distress - ENT normal pinna, normal nares, normal mucosa, no hearing loss, no congestion - Respiratory normal expansion, normal respiratory effort, clear to percussion, clear to auscultation - Cardiovascular Cardiovascular exam: Present: RRR, no murmurs/rubs/gallops - Abdomen Abdomen general surgery: Present: bowel sounds present, soft, non tender - Integumentary Integumentary general surgery: Present: warm and dry, no abnormal pigmentation, other (no jaundice) - Neurologic Present: CN 2-12 grossly intact, normal coordination, normal sensation - Psychiatric Psychiatric general surgery: Present: appropriate, oriented to person, oriented to place, oriented to time, speech is normal, memory intact Exam Initial Vital Signs Temp Pulse Resp BP Pulse Ox 97.1 F L 68 18 164/94 97 08/17/17 12:24 08/17/17 12:24 08/17/17 12:24 08/17/17 12:24 08/17/17 12:24 Results - Labs 08/18/17 04:48 08/18/17 04:48 Abnormal lab results Hgb 12.6 g/dL (12.9-16.9) L 08/18/17 04:48 Chloride 110 mEq/L (98-107) H 08/18/17 04:48 Carbon Dioxide 22 mEq/L (23-29) L 08/18/17 04:48 Glucose 139 mg/dL (70-105) H 08/18/17 04:48 POC Glucose 125 mg/dL (70-99) H 08/18/17 05:39 Total Bilirubin 1.6 mg/dL (0.3-1.0) H 08/18/17 04:48 ALT 115 Units/L (7-52) H 08/18/17 04:48 Alkaline Phosphatase 215 Units/L (34-104) H 08/18/17 04:48 Triglycerides 199 mg/dL (< 150) H 08/18/17 04:48 VLDL Cholesterol, Calc 40 mg/dL (< 31) H 08/18/17 04:48 HDL Cholesterol 30 mg/dL (40-59) L 08/18/17 04:48 Cholesterol/HDL Ratio 5.0 (0-4.9) H 08/18/17 04:48 Diabetes panel 08/18/17 Range/Units 04:48 Sodium 140 (136-145) mEq/L Potassium 4.0 (3.5-5.1) mEq/L Chloride 110 H (98-107) mEq/L Carbon Dioxide 22 L (23-29) mEq/L BUN 12 (8-23) mg/dL Creatinine 0.76 (0.70-1.30) mg/dL Glucose 139 H (70-105) mg/dL Calcium 9.5 (8.6-10.3) mg/dL AST 28 (13-39) Units/L ALT 115 H (7-52) Units/L Alkaline Phosphatase 215 H (34-104) Units/L Albumin 3.8 (3.5-5.7) g/dL Triglycerides 199 H (< 150) mg/dL HDL Cholesterol 30 L (40-59) mg/dL Calcium panel 08/18/17 Range/Units 04:48 Calcium 9.5 (8.6-10.3) mg/dL Albumin 3.8 (3.5-5.7) g/dL Pituitary panel 08/18/17 Range/Units 04:48 Sodium 140 (136-145) mEq/L Potassium 4.0 (3.5-5.1) mEq/L Chloride 110 H (98-107) mEq/L Carbon Dioxide 22 L (23-29) mEq/L BUN 12 (8-23) mg/dL Creatinine 0.76 (0.70-1.30) mg/dL Glucose 139 H (70-105) mg/dL Calcium 9.5 (8.6-10.3) mg/dL Adrenal panel 08/18/17 Range/Units 04:48 Sodium 140 (136-145) mEq/L Potassium 4.0 (3.5-5.1) mEq/L Chloride 110 H (98-107) mEq/L Carbon Dioxide 22 L (23-29) mEq/L BUN 12 (8-23) mg/dL Creatinine 0.76 (0.70-1.30) mg/dL Glucose 139 H (70-105) mg/dL Calcium 9.5 (8.6-10.3) mg/dL Total Bilirubin 1.6 H (0.3-1.0) mg/dL AST 28 (13-39) Units/L ALT 115 H (7-52) Units/L Alkaline Phosphatase 215 H (34-104) Units/L Albumin 3.8 (3.5-5.7) g/dL All other labs normal. Consult Discharge Plan - Plan Referrals: [facility] [Outside]
[2017-08-18] MEDS: Pantoprazole 40 MG VIAL IVP SCH (12:13)
--- NOTE | 2017-08-18 12:18 | Internal Med Progress Note ---
Date of Encounter: 08/18/17 Time of Encounter: 12:12 - Assessment and plan (1) Cholelithiasis with choledocholithiasis Current Visit: Yes Status: Acute Assessment and plan: stone in CBD was removed by ERCP, Dr Miles is consulted for possible lap juan patient is asymptomatic at this point (2) Nausea and vomiting Current Visit: Yes Status: Acute Assessment and plan: resolved from CBD stone Qualifiers: Vomiting type: cyclical vomiting Vomiting Intractability: non-intractable Qualified Code(s): G43.A0 - Cyclical vomiting, not intractable (3) HTN (hypertension) Current Visit: Yes Status: Chronic Qualifiers: Hypertension type: essential hypertension Qualified Code(s): I10 - Essential (primary) hypertension (4) HLD (hyperlipidemia) Current Visit: Yes Status: Chronic Qualifiers: Hyperlipidemia type: pure hypercholesterolemia Qualified Code(s): E78.00 - Pure hypercholesterolemia, unspecified; E78.0 - Pure hypercholesterolemia (5) Diabetes Current Visit: Yes Status: Chronic Assessment and plan: DM type 2 w/o complications, well controlled, check A1C hold oral meds, on SSI Qualifiers: Diabetes mellitus type: type 2 Diabetes mellitus termite control representative insulin use: without mcfp use Diabetes mellitus complication status: with unspecified complications Qualified Code(s): E11.8 - Type 2 diabetes mellitus with unspecified complications (6) DVT prophylaxis Current Visit: Yes Status: Acute - Time Spent With Patient Total time spent is greater than 50% in coordination of care (as documented) at patient's floor/unit and/or counseling patient: 25 - 35 minutes - Subjective Interval history: Mr. Espinoza is a 71 year old male w/PMH of diabetes, HTN, and HLD presents from the ED w/CC of abdominal pain, nausea, and vomiting since July 24. He Was at [facility] for appointment and sent to [facility] ED for further workup based on consistent epigastric pain and abdominal edema. Imaging at [place] shows biliary duct dilation with suspicion for possible common bile duct stone. He was transferred to [place] for further care. Dr. Mccain performed ERCP on 08/18 this morning, he tolerated procedure well. A 1.4 cm stone was recovered. Surgery was consulted for laparoscopic cholecystectomy. Patient denies pain and nausea, he has denies hx of CAD, CKD, stroke, has DM on oral meds, Mets >4. will obtain EKG for preop, His RCRI is "0". patient is considered as low risk for periop cardiovascular events. - Constitutional Vitals: Temp Pulse Resp BP Pulse Ox 97.3 F L 56 16 122/77 98 08/18/17 11:00 08/18/17 11:10 08/18/17 11:10 08/18/17 11:10 08/18/17 11:10 General appearance: Present: cooperative, A&O X 3, pleasant, no acute distress, answers questions appropriately Exam: CONSTITUTIONAL: patient appears as an age appropriate male in no acute distress. EYES Clear sclerae, bilateral pupils are equal, reactive to light. EMOI. RESPIRATORY: No accessory muscle use, bilateral clear to auscultation, no wheezing, no crackles/rales. CARDIOVASCULAR: Regular heart rate, normal S1 and S2, no murmurs GASTROINTESTINAL: bowel sounds present, soft, no tenderness. MUSCULOSKELETAL: Joints in normal range of motion, no clubbing, no edema, no cyanosis. Bilateral peripheral pulses 2+. NEUROLOGIC: CN II to XII are grossly intact, no focal neurological deficit. Internal Medicine: Result - Labs CBC & Chem 7: 08/18/17 04:48 08/18/17 04:48 Labs: Short CBC 08/18/17 Range/Units 04:48 WBC 6.6 (4.3-11.1) K/mcL Hgb 12.6 L (12.9-16.9) g/dL Hct 37.8 (37.5-50.1) % Plt Count 261 (140-400) K/mcL Neutrophils # 4.4 (1.6-8.9) K/mcL BMP 08/18/17 04:48 Sodium 140 Potassium 4.0 Chloride 110 H Carbon Dioxide 22 L BUN 12 Creatinine 0.76 Glucose 139 H Calcium 9.5 Liver Function 08/18/17 Range/Units 04:48 Total Bilirubin 1.6 H (0.3-1.0) mg/dL AST 28 (13-39) Units/L ALT 115 H (7-52) Units/L Alkaline Phosphatase 215 H (34-104) Units/L Albumin 3.8 (3.5-5.7) g/dL - ABG Interpretation ABG results: PT/INR, D-dimer PT 11.7 Seconds (9.4-12.1) 08/17/17 18:28 - Impressions Impressions Cath/Invasive Procedure 08/18/17 10:18 IMPRESSION: No evidence of a focal stenosis or filling defect within the opacified biliary tree. Please refer to the procedure report for further details. D/ / Jermaine Colon MD / Jermaine Colon MD Interpreting Provider: Jermaine Colon MD Consult Discharge Plan - Plan Referrals: [facility] [Outside]
[2017-08-18] MEDS: Topiramate 100 MG TABLET PO SCH (21:19)
[2017-08-19 01:21] LABS: Basophils % 0.1 %; Eosinophils % 0.1 %; Hematocrit 37.3 % (37.5-50.1); Hemoglobin 12.4 g/dL (12.9-16.9); Immature Granulocytes % 0.4 % (0-4); Lymphocytes # 1.3 K/mcL (0.6-4.6); Mean Corpuscular HGB Conc 33.2 g/dL (31.6-35.5); Mean Corpuscular Hemoglobin 28.6 pg (28.0-33.3); Mean Corpuscular Volume 86.1 fL (83.0-100.0); Mean Platelet Volume 10.1 fL (9.4-12.4); Monocytes # 0.6 K/mcL (0.0-1.3); Monocytes % 6.9 %; Neutrophils # 7.2 K/mcL (1.6-8.9); Platelet Count 261 K/mcL (140-400); Red Blood Count 4.33 M/mcL (4.19-5.50); Red Cell Distribution Width 13.8 % (11.5-14.5); Segmented Neutrophils % 78.5 %
[2017-08-19 01:43] LABS: Alanine Aminotransferase 92 Units/L (7-52); Albumin 3.9 g/dL (3.5-5.7); Albumin/Globulin Ratio 1.6 (1.1-2.2); Alkaline Phosphatase 200 Units/L (34-104); Aspartate Amino Transferase 21 Units/L (13-39); BUN/Creatinine Ratio 15 (6-26); Bilirubin,Total 1.9 mg/dL (0.3-1.0); Blood Urea Nitrogen 12 mg/dL (8-23); Calcium 9.3 mg/dL (8.6-10.3); Carbon Dioxide 21 mEq/L (23-29); Chloride 108 mEq/L (98-107); Globulin 2.4 g/dL (2.4-3.5); Glucose 141 mg/dL (70-105); Osmolality,Calculated 286 (280-300); Sodium 137 mEq/L (136-145); Total Protein 6.3 g/dL (6.4-8.9); eGFR For African Americans > 60 (> 60); eGFR For Non-African Americans > 60 (> 60)
[2017-08-19 01:44] LABS: Albumin 3.8 g/dL (3.5-5.7); Albumin/Globulin Ratio 1.5 (1.1-2.2); Bilirubin,Direct 0.5 mg/dL (0.0-0.2); Bilirubin,Indirect 1.4 mg/dL (0.0-1.2); Bilirubin,Total 1.9 mg/dL (0.3-1.0); Globulin 2.5 g/dL (2.4-3.5); Total Protein 6.3 g/dL (6.4-8.9)
--- NOTE | 2017-08-19 07:12 | Anesthesia Evaluation PreOp ---
Date of Encounter: 08/19/17 Time of Encounter: 07:10 - Past History Planned Operation: Laparoscopic Cholecystectomy Cardiac History: HTN, Hyperlipidemia Pulmonary History: Denies Any Significant HX BOX PRINTER History: Denies Any Significant HX Other Medical History: Diabetes Type II Anesthesia History: Past Anesthesia, Problems (PONV) Alcohol Use: occasionally Drug use: none Medications and Allergies Citalopram Hydrobromide [Celexa] 20 mg PO DAILY 08/17/17 [History] Metformin HCl [Glucophage] 500 mg PO BID 08/17/17 [History] Prazosin HCl [Minipress] 5 mg PO HS 08/17/17 [History] Topiramate [Topamax] 100 mg PO HS 08/17/17 [History] glipiZIDE [Glucotrol] 2.5 mg PO DAILY 08/17/17 [History] 3 Allergy/AdvReac Type Severity Reaction Status Date / Time gemfibrozil AdvReac Muscle Pain Verified 08/17/17 14:48 niacin AdvReac Dizziness Verified 08/17/17 14:48 - Meds/Allergy Pre-op Review Medications Reviewed: Yes Allergies Reviewed: Yes Beta Blockers on Current Med List: No Anesthesia Results - Labs 08/19/17 00:44 08/19/17 00:44 Laboratory Tests 08/17/17 18:28 PT 11.7 INR 1.1 - Imaging EKG: report reviewed (08/18/2017 KANG, ERIBERTO) Anesthesia Exam Vital Signs/O2 Sat/Glucose, Most Recent Temp Pulse Resp BP Pulse Ox 97.5 F L 63 15 137/65 96 08/19/17 06:39 08/19/17 06:39 08/19/17 06:39 08/19/17 06:39 08/19/17 06:39 Blood Glucose* 119 Height: 6'1''/1.85m Weight: 205 lbs/93.4 kg NPO (# of Hours): 8 Pain Scale: 0 Pain Scale Used: Numeric (1 - 10) - HEENT Pupil (Motor): EOMI Mallampati: II Teeth: Normal Oral Opening: Greater than 3 - BOX PRINTER LOC: Oriented BOX PRINTER Motor: Normal RUE, Normal LUE, Normal RLE, Normal LLE, Normal Face BOX PRINTER Sensory: Normal: RUE, LUE, RLE, LLE, Face - Cardiac Rhythm: Regular Murmur: None - Pulmonary Breath Sounds: bilateral Clear Respiratory Effort: Symmetrical Anesthesia Assess/Plan ASA Score: 2 Modified [place] Scale for Level of Consciousness: Cooperative, oriented, and tranquil Anesthetic Plan: General Monitoring Plan: Standard Monitors Recovery Plan: PACU
[2017-08-19] MEDS ORDERED: Scopolamine Patch 1.5 MG PATCH.TD72 TD ONE (07:30)
[2017-08-19] MEDS: Insulin LISPRO 300 UNITS/3 ML VIAL SQ SCH ×3 (07:30→16:39)
[2017-08-19] MEDS ORDERED: Scopolamine Patch 1.5 MG PATCH.TD72 ONE (07:31)
[2017-08-19] MEDS ORDERED: CefOXitin 1,000 MG VIAL ONE (07:35)
[2017-08-19] MEDS ORDERED: Isovue-300 50 ML VIAL IVP ONE (07:35)
[2017-08-19] MEDS ORDERED: Dexamethasone 4 MG/ML VIAL ONE (07:40)
[2017-08-19] MEDS ORDERED: *HR* FentaNYL (PF) 100 MCG/2 ML VIAL ONE ×2 (07:40→08:54)
[2017-08-19] MEDS ORDERED: Lidocaine -MPF 4% 5 ML AMPUL ONE (07:40)
[2017-08-19] MEDS ORDERED: Neostigmine Methylsulfate 3 MG/3 ML SYRINGE ONE (07:40)
[2017-08-19] MEDS ORDERED: *HR* Rocuronium Bromide 50 MG/5 ML VIAL ONE (07:40)
[2017-08-19] MEDS ORDERED: *HR* Propofol 200 MG/20 ML VIAL IVP ONE (07:40)
[2017-08-19] MEDS ORDERED: Lidocaine -MPF 2% 2 ML VIAL ONE (07:40)
[2017-08-19] MEDS ORDERED: Ondansetron 4 MG/2 ML VIAL ONE (07:40)
[2017-08-19] MEDS ORDERED: *HR* Succinylcholine 200 MG/10 ML VIAL IVP ONE (07:40)
[2017-08-19] MEDS ORDERED: *HR* Midazolam HCl 2 MG/2 ML VIAL ONE (07:40)
[2017-08-19] MEDS ORDERED: CefOXitin 2,000 MG VIAL ONE (07:46)
[2017-08-19] MEDS ORDERED: EPHEDrine 50 MG/ML VIAL ONE (08:09)
[2017-08-19] MEDS: Pantoprazole 40 MG VIAL IVP SCH (08:16)
[2017-08-19] MEDS ORDERED: *HR* HYDROmorphone (PF) 1 MG/ML SYRINGE IVP PRN (08:22)
[2017-08-19] MEDS ORDERED: *HR* Promethazine 25 MG/ML VIAL IVP PRN (08:22)
[2017-08-19] MEDS ORDERED: cefOXitin 2,000 MG in Water for inj. (sterile) 20 ML 20 ML IVP ONE (08:24)
--- NOTE | 2017-08-19 09:14 | Operative Note ---
Date of procedure: 08/19/17 Pre-op diagnosis: Cholelithiasis and choledocholithiasis Post-op diagnosis: same Procedure: Laparoscopic cholecystectomy, cholangiogram Anesthesia: PEPEA Surgeon: Ross Miles Was there an purchasing assistant present: No Estimated blood loss (cc): 10 Specimen: Gallbladder and contents Condition: stable Disposition: PACU Procedure in Detail: Laparoscopic cholecystectomy and intraoperative cholangiogram Operative procedure after informed consent and appropriate patient identification and timeout the patient was taken to the major operating suite and placed supine position given adequate general endotracheal anesthesia the abdomen is prepped and draped in sterile fashion utilizing ChloraPrep standard draping techniques timeout was taken patient is identified. I made a vertical midline incision below the umbilicus dissected down to level of fascia there are 2 traction stitches placed in the abdominal cavity was entered visually. A Cortez trocar was placed in the abdomen and the abdomen was insufflated to 15 mmHg pressure CO2 the gallbladder was visualized. I placed 11 port in the subxiphoid area and 2 5 mm ports in the subcostal area. The gallbladder was grasped and elevated. A variety of blunt and sharp dissection techniques were used to isolate the cystic duct and cystic artery. The cystic artery was controlled with 2 surgical clips proximally and one distally and it was divided I placed a surgical clip on the neck the gallbladder and obtained an intraoperative cholangiogram using 15 mL of Isovue. Intraoperative cholangiogram was normal, chronic dilatation is noted. The cholangiocatheter was removed and the cystic duct was controlled with 2 surgical clips proximally and was divided the gallbladder was removed from the gallbladder fossae using electrocautery. The gallbladder was removed through the #11 port site. I replaced the #11 port and irrigated with copious amounts of antibiotic containing solution. There is no evidence of bleeding or bile leak. All trochars were removed. Fascia was closed with 0 Vicryl skin with 2- 0 and 4-0 Vicryl he tolerated the procedure well and was transferred to recovery in stable condition
--- NOTE | 2017-08-19 09:38 | Anesthesia Evaluation Post Op ---
Date of Encounter: 08/19/17 Time of Encounter: 09:37 - Vital Signs Vital Signs: Vital Signs/O2 Sat, Most Current Temp Pulse Resp BP Pulse Ox 97.5 F L 68 16 155/76 99 08/19/17 09:10 08/19/17 09:30 08/19/17 09:30 08/19/17 09:30 08/19/17 09:30 - Lungs Lungs: Clear Ascult./Percussion - Airway Airway: Non-obstructed - Cardiovascular Regular Rate - Mental Status Mental Status: Asleep with brisk response to light stimulation - Pain Pain Scale: 0 Pain Scale used: Numeric (1 - 10) - Nausea Vomiting Nausea Vomiting: Not Present - Hydration Hydration: Ice chips, Has not voided - Discharge PostOp Status: Transfer Patient to floor
[2017-08-19] MEDS ORDERED: Dextrose Gel 15 GM/37.5 ML TUBE PO PRN ×2 (09:51)
[2017-08-19] MEDS ORDERED: Ringers Solution, Lactated 1,000 ML IVC SCH (09:51)
[2017-08-19] MEDS ORDERED: D5% in Water 1,000 ML IVC PRN (09:51)
[2017-08-19] MEDS ORDERED: Ondansetron 4 MG/2 ML VIAL IVP PRN (09:51)
[2017-08-19] MEDS ORDERED: Acetaminophen 325 MG TABLET PO PRN (09:51)
[2017-08-19] MEDS ORDERED: Naloxone 0.4 MG/ML INJ IVP PRN (09:51)
[2017-08-19] MEDS ORDERED: *HR* Dextrose 50 % in Water (Syg) 50 ML SYRINGE IVP PRN (09:51)
[2017-08-19] MEDS: *HR* HYDROcodone/Acet 5/325 mg TABLET PO PRN ×2 (11:08→21:04)
--- NOTE | 2017-08-19 16:43 | Internal Med Progress Note ---
Date of Encounter: 08/19/17 Time of Encounter: 16:40 - Assessment and plan (1) Cholelithiasis with choledocholithiasis Current Visit: Yes Status: Acute Assessment and plan: stone in CBD was removed by ERCP on 08/18, Dr Pacheco did lap juan today, patient tolerated procedure well, tolerated clear diet. Dr Pacheco is ok to discharge if he tolerates diet. (2) Nausea and vomiting Current Visit: Yes Status: Acute Assessment and plan: resolved Qualifiers: Vomiting type: cyclical vomiting Vomiting Intractability: non-intractable Qualified Code(s): G43.A0 - Cyclical vomiting, not intractable (3) HTN (hypertension) Current Visit: Yes Status: Chronic Qualifiers: Hypertension type: essential hypertension Qualified Code(s): I10 - Essential (primary) hypertension (4) HLD (hyperlipidemia) Current Visit: Yes Status: Chronic Qualifiers: Hyperlipidemia type: pure hypercholesterolemia Qualified Code(s): E78.00 - Pure hypercholesterolemia, unspecified; E78.0 - Pure hypercholesterolemia (5) Diabetes Current Visit: Yes Status: Chronic Assessment and plan: continue SSI, d/c IVF Qualifiers: Diabetes mellitus type: type 2 Diabetes mellitus petroleum terminal plant operator insulin use: without petroleum terminal plant operator use Diabetes mellitus complication status: with unspecified complications Qualified Code(s): E11.8 - Type 2 diabetes mellitus with unspecified complications (6) DVT prophylaxis Current Visit: Yes Status: Acute - Time Spent With Patient Total time spent is greater than 50% in coordination of care (as documented) at patient's floor/unit and/or counseling patient: - Subjective Interval history: Mr. Espinoza is a 71 year old male w/PMH of diabetes, HTN, and HLD presents from the ED w/CC of abdominal pain, nausea, and vomiting since July 24. He Was at OR for appointment and sent to [facility] for further workup based on consistent epigastric pain and abdominal edema. Imaging at OR shows biliary duct dilation with suspicion for possible common bile duct stone. He was transferred to [place] for further care. Dr. Mccain performed ERCP on 08/18 this morning, he tolerated procedure well. A 1.4 cm stone was recovered. Surgery was consulted for laparoscopic cholecystectomy. Patient denies pain and nausea, he has denies hx of CAD, CKD, stroke, has DM on oral meds, Mets >4. will obtain EKG for preop, His RCRI is "0". patient is considered as low risk for periop cardiovascular events. Patient did well with lap pan, tolerated clear diet. will advance diet to ADA diet. Dr Pacheco is ok to discharge wthe patient if he toelrates diet, but [facility], would not be able to get script filled tonight. discharge tomorrow if he tolerates diet - Constitutional Vitals: Temp Pulse Resp BP Pulse Ox 97.8 F 73 15 143/68 96 08/19/17 14:47 08/19/17 14:47 08/19/17 14:47 08/19/17 14:47 08/19/17 14:47 General appearance: Present: cooperative, A&O X 3, pleasant, no acute distress, answers questions appropriately Exam: CONSTITUTIONAL: patient appears as an age appropriate male in no acute distress. EYES Clear sclerae, bilateral pupils are equal, reactive to light. EMOI. RESPIRATORY: No accessory muscle use, bilateral clear to auscultation, no wheezing, no crackles/rales. CARDIOVASCULAR: Regular heart rate, normal S1 and S2, no murmurs GASTROINTESTINAL: bowel sounds present, soft, no tenderness. MUSCULOSKELETAL: Joints in normal range of motion, no clubbing, no edema, no cyanosis. Bilateral peripheral pulses 2+. NEUROLOGIC: CN II to XII are grossly intact, no focal neurological deficit. Internal Medicine: Result - Labs CBC & Chem 7: 08/19/17 00:44 08/19/17 00:44 Labs: Short CBC 08/19/17 Range/Units 00:44 WBC 9.2 (4.3-11.1) K/mcL Hgb 12.4 L (12.9-16.9) g/dL Hct 37.3 L (37.5-50.1) % Plt Count 261 (140-400) K/mcL Neutrophils # 7.2 (1.6-8.9) K/mcL BMP 08/19/17 00:44 Sodium 137 Potassium 4.0 Chloride 108 H Carbon Dioxide 21 L BUN 12 Creatinine 0.82 Glucose 141 H Calcium 9.3 Liver Function 08/19/17 08/19/17 Range/Units 00:44 00:44 Total Bilirubin 1.9 H 1.9 H (0.3-1.0) mg/dL Direct Bilirubin 0.5 H (0.0-0.2) mg/dL AST 21 21 (13-39) Units/L ALT 92 H 92 H (7-52) Units/L Alkaline Phosphatase 200 H 201 H (34-104) Units/L Albumin 3.9 3.8 (3.5-5.7) g/dL - ABG Interpretation ABG results: PT/INR, D-dimer PT 11.7 Seconds (9.4-12.1) 08/17/17 18:28 - Impressions Impressions Cholangiogram,Operative 08/19/17 07:22 IMPRESSION: Intraoperative cholangiogram demonstrates dilated common bile duct and intrahepatic biliary ducts. D/ / Rishabh Brown MD / Rishabh Brown MD Interpreting Provider: Rishabh Brown MD - VTE Documentation of Mechanical Device: Intermittent pneumatic compression device Consult Discharge Plan - Plan Referrals: [facility] [Outside]
[2017-08-19] MEDS ORDERED: Insulin LISPRO 300 UNITS/3 ML VIAL SQ SCH (21:00)
[2017-08-19] MEDS ORDERED: Topiramate 100 MG TABLET PO SCH (21:00)
[2017-08-20 01:57] LABS: Basophils % 0.1 %; Hematocrit 34.7 % (37.5-50.1); Hemoglobin 11.3 g/dL (12.9-16.9); Immature Granulocytes % 0.4 % (0-4); Lymphocytes # 1.4 K/mcL (0.6-4.6); Lymphocytes % 9.8 %; Mean Corpuscular HGB Conc 32.6 g/dL (31.6-35.5); Mean Corpuscular Hemoglobin 27.9 pg (28.0-33.3); Mean Corpuscular Volume 85.7 fL (83.0-100.0); Mean Platelet Volume 10.6 fL (9.4-12.4); Platelet Count 247 K/mcL (140-400); Red Blood Count 4.05 M/mcL (4.19-5.50); Red Cell Distribution Width 14.5 % (11.5-14.5); Segmented Neutrophils % 82.7 %
[2017-08-20 02:06] LABS: Neutrophils # 11.7 K/mcL (1.6-8.9)
[2017-08-20 02:14] LABS: Albumin 3.7 g/dL (3.5-5.7); Albumin/Globulin Ratio 1.6 (1.1-2.2); Bilirubin,Direct 0.4 mg/dL (0.0-0.2); Bilirubin,Indirect 1.8 mg/dL (0.0-1.2); Bilirubin,Total 2.2 mg/dL (0.3-1.0); Globulin 2.3 g/dL (2.4-3.5)
[2017-08-20 02:17] LABS: Alanine Aminotransferase 104 Units/L (7-52); Albumin 3.7 g/dL (3.5-5.7); Albumin/Globulin Ratio 1.5 (1.1-2.2); Alkaline Phosphatase 168 Units/L (34-104); Aspartate Amino Transferase 45 Units/L (13-39); BUN/Creatinine Ratio 15 (6-26); Bilirubin,Total 2.1 mg/dL (0.3-1.0); Blood Urea Nitrogen 14 mg/dL (8-23); Calcium 8.9 mg/dL (8.6-10.3); Carbon Dioxide 23 mEq/L (23-29); Chloride 107 mEq/L (98-107); Globulin 2.4 g/dL (2.4-3.5); Glucose 140 mg/dL (70-105); Osmolality,Calculated 285 (280-300); Potassium 3.8 mEq/L (3.5-5.1); Sodium 136 mEq/L (136-145); Total Protein 6.1 g/dL (6.4-8.9); eGFR For African Americans > 60 (> 60); eGFR For Non-African Americans > 60 (> 60)
[2017-08-20 07:00] VITALS: BP 139/79
--- NOTE | 2017-08-20 07:04 | Electrocardiograph Report ---
[address] [place], [place] [address] Test Date: 2017-08-18 Pat Name: Juvencio Espinoza Department: 115 Room: 3A32 Gender: M Store Receiver: : 1945 Requested By: Nikita Edmondson Order Number: [id number] Reading MD: Kraig Kang Measurements Intervals [place] Rate: 50 P: 50 MD: 175 QRS: 34 QRSD: 160 T: 36 QT: 491 QTc: 464 Interpretive Statements SINUS BRADYCARDIA RIGHT BUNDLE BRANCH BLOCK Electronically Signed On 08-20-2017 7:02:49 EDT by Kraig Kang
[2017-08-20] MEDS: Insulin LISPRO 300 UNITS/3 ML VIAL SQ SCH (08:31)
[2017-08-20] MEDS ORDERED: Pantoprazole 40 MG VIAL IVP SCH (09:00)
--- NOTE | 2017-08-20 09:12 | Discharge Summary ---
- NOTES TO OUTPATIENT PROVIDER Notes to Outpatient Provider: Pt presented with abdominal pain. Found to have cholelithiasis and choledocholithiasis. Had ERCP and then cholecystectomy. Doing better now. Orders not resulted at time of discharge: Pending orders 08/19/17 09:00 Surgical Pathology [[facility]] Routine Date of Encounter: 08/20/17 Time of Encounter: 09:10 - Discharge Diagnosis (1) Cholelithiasis with choledocholithiasis Priority: Primary Status: Resolved (2) Abdominal pain Priority: Secondary Status: Acute Qualifiers: Abdominal location: epigastric Qualified Code(s): R10.13 - Epigastric pain (3) HTN (hypertension) Priority: Secondary Status: Chronic Qualifiers: Hypertension type: essential hypertension Qualified Code(s): I10 - Essential (primary) hypertension (4) HLD (hyperlipidemia) Priority: Secondary Status: Chronic Qualifiers: Hyperlipidemia type: mixed hyperlipidemia Qualified Code(s): E78.2 - Mixed hyperlipidemia (5) Diabetes Priority: Secondary Status: Chronic Qualifiers: Diabetes mellitus type: type 2 Diabetes mellitus meterman insulin use: without correction use Diabetes mellitus complication status: without complication Qualified Code(s): E11.9 - Type 2 diabetes mellitus without complications (6) Nausea and vomiting Priority: Secondary Status: Resolved Qualifiers: Vomiting type: cyclical vomiting Vomiting Intractability: non-intractable Qualified Code(s): G43.A0 - Cyclical vomiting, not intractable Hospital course: Mr. Espinoza is a 71 year old male presented to [facility] with complaints of abdominal pain with nausea and vomiting. He had ultrasound which showed stones in gallbladder and CBD. He was transferred to [place] ED. Mr Espinoza was admitted to med surg. He was NPO and due to choledocholithiasis he was evaluated by GI and underwent ERCP. He tolerated well and on 08/19 he was taken to OR for laparoscopic cholecystectomy. There were no issues. He was able to tolerate diet for dinner and again for breakfast. At this time he feels OK except for some post op pain. He has no nausea. He feels ready for discharge home. Discharge discussed with: patient - Time Spent with Patient Total time spent providing and/or coordinating discharge services: 41min - Discharge Medications Prescriptions: HYDROcodone/Acet 5/325 mg [[place] 5-325 mg] 1 tab PO Q6H PRN 5 Days #20 tablet PRN Reason: Moderate Pain Home Medications: Citalopram Hydrobromide [Celexa] 20 mg PO DAILY 08/17/17 [History] Metformin HCl [Glucophage] 500 mg PO BID 08/17/17 [History] Prazosin HCl [Minipress] 5 mg PO HS 08/17/17 [History] Topiramate [Topamax] 100 mg PO HS 08/17/17 [History] glipiZIDE [Glucotrol] 2.5 mg PO DAILY 08/17/17 [History] HYDROcodone/Acet 5/325 mg [[place] 5-325 mg] 1 tab PO Q6H PRN 5 Days #20 tablet [Rx] Allergies/Adverse Reactions: 3 Allergy/AdvReac Type Severity Reaction Status Date / Time gemfibrozil AdvReac Muscle Pain Verified 08/17/17 14:48 niacin AdvReac Dizziness Verified 08/17/17 14:48 Date of admission: 08/17/17 16:17 [facility] care physician: [facility] Consults: Ginger Mccain Discharging clinician: Jesus Alberto Coronado Anticipated date of discharge: 08/20/17 - Constitutional Vitals: Temp Pulse Resp BP Pulse Ox 98.2 F 66 14 139/79 96 08/20/17 06:54 08/20/17 06:54 08/20/17 06:54 08/20/17 06:54 08/20/17 06:54 General appearance: Present: cooperative, A&O X 3, pleasant, answers questions appropriately - Head Head exam: Present: normocephalic - Eye Eye exam: Present: EOMI, conjuntiva pink - ENT ENT exam: Present: mucous membranes moist, normal external ear exam - Respiratory Respiratory exam: Present: CTAB. Absent: rales, rhonchi, wheezes - Cardiovascular Cardiovascular exam: Present: RRR. Absent: tachycardia - GI/Abdominal GI/Abdominal exam: Present: soft, tenderness (Tender near post op incisions. Well approximated.) - Extremities Exam Extremities exam: Present: warm. Absent: pedal edema, tenderness - Neurological Exam Neurological exam: Present: alert, oriented X3, no focal deficits - Skin Skin exam: Present: dry, warm - Patient Status Disposition: Home, Self-Care Condition: Good Functional capacity at discharge: independent ambulation Overall status at discharge: patient is progressing back to baseline - Discharge Instructions Follow Up With: [facility] [Outside] Additional Instructions: Activity per surgery. Follow up with Dr. Miles in 1-2 weeks and [facility] in 1 week. - Diet and Activity Activity: increase activity as tolerated Diet: advance to your usual diet - VTE Documentation of Mechanical Device: Intermittent pneumatic compression device
[2017-08-20 15:32] LABS: Estimated Average Glucose 137 mg/dl; Hemoglobin A1C 6.4 %
== END 2017-08-20 10:49 | disposition home or self-care (01) | DRG 419 ==
LOC: 3ANU 12:21 → EMEROO 12:21 → 3ANU 14:03 → SUATTDRO 16:17
PROVIDERS: ADMIT Nurse Practitioner Family; ATTEND Internal Medicine